=== PATIENT | female | born 2000 | race Caucasian/White ===

== ENCOUNTER → 2020-03-22 | Outpatient (CLI) | payer BC, OTHER ==
--- NOTE | 2020-03-22 11:03 | Diagnostic Imaging Report ---
Left foot at 1010 hours. INDICATION: Foot pain. 3 views were obtained. There are no prior studies available for comparison. FINDINGS: There is no fracture, dislocation or acute bony abnormality noted. The Lisfranc joint is well maintained. The soft tissues are unremarkable. IMPRESSION: There is no evidence for an acute bony abnormality. Dictated by: Dictated on workstation # [id number]
== END ==
LOC: RAD FS 10:08
PROVIDERS: ATTEND Nurse Practitioner
DX: M79.672 Pain in left foot (principal)
CPT/HCPCS: 73630

== ENCOUNTER → 2020-04-24 | Outpatient (CLI) | payer OTHER, BC ==
--- NOTE | 2020-04-24 09:52 | Diagnostic Imaging Report ---
Left foot at 913 hours. INDICATION: Stress fracture. 3 views were obtained. FINDINGS: The prior left foot exam of 03/22/2020 failed to show any sign of an acute bony abnormality. On this study, there is still no acute or subacute fracture identified. The Lisfranc joint is well maintained. The soft tissues are unremarkable. IMPRESSION: 1. There is still no evidence for an acute or subacute bony injury. 2. If clinical concern regarding an underlying abnormality persists, then MRI would be recommended for additional study. Dictated by: Dictated on workstation # [id number]
== END ==
LOC: RAD FS 09:11
PROVIDERS: ATTEND Nurse Practitioner
DX: M84.375D Stress fracture, left foot, subsequent encounter for fracture with routine healing (principal)
CPT/HCPCS: 73630